=== PATIENT | male | born 1980 | race Two or more races ===

== ENCOUNTER 2018-01-28 12:27 | Inpatient (IN) | payer OTHER ==
[~2018-01-28] VITALS: Ht 172.7 cm; Wt 91.2 kg
[2018-01-28 14:00] VITALS: BP 126/78
--- NOTE | 2018-01-28 14:00 | NUR ---
ADMITTING NOTES PT DIRECT ADMIT FROM [facility] FOR STUDY. DX SCHIZOPHRENIA. PT A/OX4 AMBULATORY, NO SKIN ISSUES. PT ADM. TO MED.SURG. , VS ARE STABLE, O2 SATURATION 100%ON ROOM AIR. BELONGINGS LIST SIGHED AND PLACED IN CHART. THERE IS SPECIAL INSTRUCTION FROM DR. ZHU IN THE CHART. WILL ENDORSE TO NEXT SHIFT.
[2018-01-28] MEDS ORDERED: ESCITALOPRAM OXALATE (10 MG) 10 MG TABLET PO SCH (14:02)
[2018-01-28] MEDS ORDERED: METOCLOPRAMIDE HCL 10 MG TABLET PO PRN (14:30)
[2018-01-28] MEDS ORDERED: MAG HYDROX/AL HYDROX/SIMETH 30 ML UDC PO PRN (14:30)
[2018-01-28] MEDS ORDERED: IBUPROFEN 200 MG TABLET PO PRN (14:30)
[2018-01-28] MEDS ORDERED: MAGNESIUM HYDROXIDE 30 ML UDC PO PRN (14:30)
[2018-01-28 16:00] VITALS: BP 121/74
--- NOTE | 2018-01-28 19:03 | NUR ---
PT RESTING COMFORTABLE IN ROOM, NO CHANGES NOTED SINCE ADMISSION. SAFETY PRECAUTIONS IN PLACE, CALL LIGHT WITHIN REACH.WILL ENDORSE TO NEXT SHIFT FOR MARYJANE.
--- NOTE | 2018-01-28 19:30 | NUR ---
RN MS OPENING NOTES RECEIVED PATIENT IN BED AWAKE, ALERT AND ORIENTED X4, VERBALLY RESPONSIVE, ABLE TO MAKE NEEDS KNOWN. BREATHING EVEN AND UNLABORED. NO SOB NOTED. TOLERATING ROOM AIR. NO COMPLAINTS OF PAIN OR DISCOMFORT. NO IV ACCESS PER MD. SKIN DRY AND WARM TO TOUCH. AFEBRILE. ALL OTHER NEEDS ATTENDED TO. SAFETY MEASURES IN PLACE. CALL LIGHT WITHIN REACH. WILL CONTINUE TO MONITOR.
[2018-01-28 20:42] VITALS: BP 108/63
--- NOTE | 2018-01-29 06:37 | NUR ---
RN MS CLOSING NOTES PATIENT IN BED AWAKE. NO ACUTE CHANGES THROUGHOUT SHIFT. BREATHING EVEN AND UNLABORED. NO SOB NOTED. TOLERATING ROOM AIR. NO COMPLAINTS OF PAIN OR DISCOMFORT. NO IV ACCESS PER MD. SKIN DRY AND WARM TO TOUCH. AFEBRILE. ALL OTHER NEEDS ATTENDED TO. SAFETY MEASURES IN PLACE. CALL LIGHT WITHIN REACH. WILL ENDORSE TO ONCOMING NURSE FOR CONTINUITY OF CARE.
--- NOTE | 2018-01-29 07:10 | NUR ---
MS RN OPENING NOTES PATIENT IN BED AWAKE. NO ACUTE CHANGES THROUGHOUT SHIFT. BREATHING EVEN AND UNLABORED. NO SOB NOTED. TOLERATING ROOM AIR. NO COMPLAINTS OF PAIN OR DISCOMFORT. NO IV ACCESS PER MD. SAFETY MEASURES IN PLACE. CALL LIGHT WITHIN REACH.WILL CONTINUE TO MONITOR
[2018-01-29 08:00] VITALS: BP 122/83
[2018-01-29] MEDS: LEXAPRO 20 MG PO SCH (08:22)
[2018-01-29] MEDS: LORAZEPAM 1 MG TABLET FOR AGITATION PO PRN (15:26)
--- NOTE | 2018-01-29 15:35 | NUR ---
PRN ATIVAN 1MG IS GIVEN PER PATIENT REQUEST. PT STATES HE HAS RAISING THOUGHTS TO LEAVE THE HOSPITAL. PT COOPERATIVE AND APPEAR CALM. WILL CONTINUE TO MONITOR
[2018-01-29 16:00] VITALS: BP 108/68
--- NOTE | 2018-01-29 18:39 | NUR ---
MS RN CLOSING NOTES PATIENT RESTING IN BED. NO ACUTE CHANGES THROUGHOUT SHIFT. BREATHING EVEN AND UNLABORED. NO SOB NOTED. TOLERATING ROOM AIR. NO COMPLAINTS OF PAIN OR DISCOMFORT. NO IV ACCESS PER MD. SAFETY MEASURES IN PLACE. CALL LIGHT WITHIN REACH.WILL ENDORSE TO NEXT SHIFT.
--- NOTE | 2018-01-29 19:10 | NUR ---
RN OPENING NOTES RECEIVED PT RESTING IN BED, NO SOB, BREATHING EVEN AND UNLABORED AND IN NO ACUTE DISTRESS AT THIS TIME. ALL PATIENT'S NEEDS ATTENDED TO, DENIES PAIN, NAUSEA. PLACED CALL LIGHT WITHIN EASY REACH. WILL CONTINUE TO MONITOR.
[2018-01-29 20:00] VITALS: BP 102/54
[2018-01-29] MEDS: ZOLPIDEM TARTRATE 10 MG TABLET PO PRN (21:06)
--- NOTE | 2018-01-30 06:30 | NUR ---
RN CLOSING NOTES PATIENT SITTING UP IN BED, ALERT AND ORIENTED X 4, NO ACUTE DISTRESS THROUGHOUT THE SHIFT. ALL PATIENT'S NEEDS ATTENDED TO, NOTED WITH NO NAUSEA/VOMITING OR DIARRHEA. PLACED CALL LIGHT WITHIN EASY REACH. WILL ENDORSE TO AM SHIFT NURSE FOR CONTINUITY OF CARE.
--- NOTE | 2018-01-30 06:35 | NUR ---
RN NOTE PATIENT WENT DOWNSTAIRS FOR A SMOKE ACCOMPANIED BY ACCOUNT RECEIVABLE CLERK. WILL CONTINUE TO MONITOR.
--- NOTE | 2018-01-30 06:43 | NUR ---
RN NOTE PATIENT BACK IN THE UNIT, IN NO ACUTE DISTRESS AND IN STABLE CONDITION.
--- NOTE | 2018-01-30 07:30 | NUR ---
MS RN OPENING NOTE RECEIVED PT IN BED, ALERT AND ORIENTED X4. DENIES N/V, CHEST PAIN, SOB. BREATHING IS EVEN AND UNLABORED ON ROOM AIR. PT HAS NO IV ACCESS PER MD. ALL NEEDS ATTENDED TO. BED IS LOCKED AND IN LOWEST POSITION, SIDE RAILS UP X2, CALL LIGHT WITHIN REACH.
[2018-01-30 08:00] VITALS: BP 110/73
[2018-01-30] MEDS: LEXAPRO 20 MG PO SCH (08:56)
--- NOTE | 2018-01-30 13:20 | NUR ---
RN PT OFF UNIT PT OFF UNIT FOR EYE APPOINTMENT.
--- NOTE | 2018-01-30 15:45 | NUR ---
MS RN PT BACK PT BACK FROM EYE APPOINTMENT IN STABLE CONDITION. ALL NEEDS ATTENDED TO.
[2018-01-30 16:00] VITALS: BP 109/69
--- NOTE | 2018-01-30 19:02 | NUR ---
MS RN CLOSING NOTE PT IN BED, ALERT AND ORIENTED X4. DENIES N/V, CHEST PAIN, SOB. BREATHING IS EVEN AND UNLABORED ON ROOM AIR. PT HAS NO IV ACCESS PER MD. ALL NEEDS ATTENDED TO. BED IS LOCKED AND IN LOWEST POSITION, SIDE RAILS UP X2, CALL LIGHT WITHIN REACH. WILL ENDORSE TO CHART CALCULATOR RN FOR CONTINUITY OF CARE.
[2018-01-30 20:00] VITALS: BP 118/74
[2018-01-30] MEDS: ZOLPIDEM TARTRATE 10 MG TABLET PO PRN (21:32)
[2018-01-31 04:00] VITALS: BP 120/80
--- NOTE | 2018-01-31 06:16 | NUR ---
MS RN NOTES AWAKE & RESPONSIVE. NOT IN ANY DISTRESS. NO SOB NOTED. DENIES ANY PAIN OR DISCOMFORT AT THIS TIME. PT SLEPT FOR 8 HRS. CALL LIGHT WITHIN REACH. BED IN LOWEST POSITION. SR UP X2 FOR SAFETY. WILL ENDORSE TO NEXT SHIFT.
--- NOTE | 2018-01-31 07:44 | NUR ---
MS RN OPENING NOTES RECEIVED PT IS AWAKE, STANDING UP IN ROOM, LOOKING OUT THE WINDOW. PT IS A/O X4, PLEASANT. RESPIRATIONS ARE EVEN AND UNLABORED, NOT IN ANY ACUTE DISTRESS NOTED. PT DENIES ANY PAIN AT THIS TIME, NO SOB OR N/V NOTED. NO IV ACCESS NOTED. INSTRUCTED PT TO USE CALL LIGHT WHEN ASSISTANCE IS NEEDED, CALL LIGHT IS LEFT WITHIN REACH. WILL CONTINUE TO MONITOR THROUGHOUT SHIFT FOR CONTINUITY OF CARE.
[2018-01-31 08:00] VITALS: BP 119/68
[2018-01-31] MEDS: LEXAPRO 20 MG PO SCH (08:14)
--- NOTE | 2018-01-31 08:19 | NUR ---
MS RN NOTES-- PT WENT DOWN FOR A SMOKE BREAK WITH SPLICER HELPER IN STABLE CONDITION. PT IS AMBULATORY, STEADY GAIT.
--- NOTE | 2018-01-31 08:40 | NUR ---
MS RN NOTES-- PT CAME BACK IN STABLE CONDITION FROM SMOKE BREAK.
[2018-01-31 16:00] VITALS: BP 117/75
--- NOTE | 2018-01-31 18:32 | NUR ---
MS RN CLOSING NOTES ALL DUE MEDS GIVEN, NEEDS MET AND RENDERED. PT IS A/O X4, AFEBRILE. RESPIRATIONS ARE EVEN AND UNLABORED, NOT IN ANY ACUTE DISTRESS NOTED. PT DENIES ANY PAIN AT THIS TIME, NO C/O SOB, N/V NOTED. NO IV ACCESS. SAFETY MEASURES ARE IN PLACE. REMINDED PT TO USE CALL LIGHT WHEN ASSISTANCE IS NEEDED, CALL LIGHT IS LEFT WITHIN REACH. WILL ENDORSE TO NEXT SHIFT FOR CONTINUITY OF CARE.
--- NOTE | 2018-01-31 19:20 | NUR ---
MS RN OPENING NOTE RECEIVED PT IN BED, RESTING, ALERT AND ORIENTED X4. DENIES N/V, CHEST PAIN, NO SOB. BREATHING IS EVEN AND UNLABORED, ON ROOM AIR. AMBULATORY/STEADY. PT HAS NO IV ACCESS PER MD. ALL NEEDS ATTENDED TO. BED IS LOCKED AND IN LOWEST POSITION, SIDE RAILS UP X 2, CALL LIGHT WITHIN REACH. WILL MONITOR CLOSELY.
[2018-01-31 20:00] VITALS: BP 107/62
[2018-01-31 20:58] VITALS: BP 107/62
[2018-01-31] MEDS: ZOLPIDEM TARTRATE 10 MG TABLET PO PRN (22:03)
--- NOTE | 2018-01-31 22:04 | NUR ---
PRN AMBIEN GIVEN PATIENT REQUESTED TO TAKE AMBIEN AT THIS TIME DUE TO SLEEPLESSNESS. PRN AMBIEN GIVEN ORDERED. WILL MONITOR CLOSELY.
[2018-02-01] MEDS: LORAZEPAM 1 MG TABLET FOR AGITATION PO PRN (04:56)
--- NOTE | 2018-02-01 04:56 | NUR ---
PRN ATIVAN GIVEN PATIENT VERBALIZED OF FEELING RESTLESS & AGITATED ASKED TO TAKE ATIVAN, PRN ATIVAN 1MG GIVEN ORDERED. WILL REASSESS FOR EFFECTIVENESS.
--- NOTE | 2018-02-01 06:31 | NUR ---
MS RN CLOSING NOTE PT IN BED, ALERT AND ORIENTED X4. DENIES N/V, CHEST PAIN, SOB. BREATHING IS EVEN AND UNLABORED. ON ROOM AIR. PT HAS NO IV ACCESS PER MD. ALL NEEDS ATTENDED TO. ATIVAN WAS GIVEN & EFFECTIVE, PT IS CALM & RELAXED AT THIS TIME. BED IS LOCKED AND IN LOWEST POSITION, SIDE RAILS UP X2, CALL LIGHT WITHIN REACH. WILL ENDORSE TO AM SHIFT RN FOR CONTINUITY OF CARE.
--- NOTE | 2018-02-01 07:53 | NUR ---
MS RN OPENING NOTES RECEIVED PT NIGHTSHIFT RN IN STABLE CONDITION. PT IS A/O X3. NO SOB OR ACUTE SIGNS OF DISTRESS NOTED. BREATHING IS EVEN AND UNLABORED. HE DENIES ANY PAIN AT THIS TIME. NO IV ACCESS NOTED. NO REPORTS OF BEHAVIORAL DISRUPTIONS REPORTED BY NIGHTSHIFT RN. PT ABLE TO SLEEP WELL THROUGHOUT THE NIGHT AND COMPLIANT WITH CURRENT MANAGEMENT. PT PERSISTS ON HAVING THE BED IN AN ELEVATED POSITION. SAFETY PRECAUTIONS EXPLAINED TO THE PT, HOWEVER HE REMAINS ADAMANT THAT THE BED STAY IN THAT POSITION STATING "I LIKE TO LOOK THROUGH THE WINDOW FROM THIS POSITION". SIDE RAILS UP X2, CALL LIGHT WITHIN REACH. WILL CONTINUE TO MONITOR
[2018-02-01 08:00] VITALS: BP 115/69
[2018-02-01] MEDS: LEXAPRO 20 MG PO SCH (08:49)
[2018-02-01] MEDS: REGLAN 10 MG PO PRN (10:02)
[2018-02-01 16:00] VITALS: BP 115/68
--- NOTE | 2018-02-01 18:29 | NUR ---
MS RN CLOSING NOTES PT REMAINS STABLE. ALL NEEDS WERE MET DURING SHIFT AND ORDERS CARRIED OUT ACCORDINGLY. ALL DUE MEDS GIVEN. PT COMPLIANT WITH TREATMENT AND MEDICATION ADMINISTRATION. NO BEHAVIORAL PROBLEMS NOTED THROUGHOUT SHIFT. SAFETY MEASURES REMAIN IN PLACE. WILL ENDORSE TO NIGHTSHIFT RN FOR MARYJANE
--- NOTE | 2018-02-01 19:10 | NUR ---
RN MS OPENING NOTES RECEIVED PATIENT IN BED AWAKE ALERT AND ORIENTED X3-4 ABLE TO MAKE NEEDS KNOWN, RESPIRATIONS EVEN AND UNLABORED WITH EQUAL RISE AND FALL OF CHEST, DENIES ANY PAIN OR DISCOMFORT AT THIS TIME, ORIENTED TO STAFF AND CALL LIGHT AND KEPT WITHIN REACH, NOTED PATIENT PLACED BED IN HIGH POSITION , MADE PATIENT AWARE NOT SAFE TO HAVE BED THIS HIGH AND WILL BRING LOWER TO GROUND, BED WAS BROUGHT DOWN TO SAFETY, PER PATIENT STATES " I LIKE IT HIGH." WILL CONTINUE TO MONITOR FOR SAFETY PRECAUTIONS, ALL NEEDS ATTENDED AT THIS TIME, WILL CONTINUE TO MONITOR AND ADDRESS NEEDS.
[2018-02-01 20:00] VITALS: BP 105/65
[2018-02-01] MEDS: ZOLPIDEM TARTRATE 10 MG TABLET PO PRN (21:18)
--- NOTE | 2018-02-01 21:18 | NUR ---
RN MS NOTES PATIENT REQUESTING FOR SANDY DELGADO PRN GIVEN ORDERED WILL CONTINUE TO MONITOR FOR EFFECTIVENESS. PATIENT PLACED BED TO HIGH POSITION, REFUSES TO HAVE BED IN LOW PLACEMENT FOR SAFETY. PATIENT ALSO REQUEST TO HAVE HEATER ON HIGH.REFUSES TO BEING TEMPERATURE OF ROOM DOWN.STATES " I GET COLD."
[2018-02-02] MEDS: LORAZEPAM 1 MG TABLET FOR AGITATION PO PRN ×2 (04:42→20:31)
--- NOTE | 2018-02-02 04:42 | NUR ---
RN MS NOTES PATIENT FEELING ANXIOUS AWAKE REQUESTING FOR ATIVAN PRN ATIVAN GIVEN ORDERED WILL CONTINUE TO MONITOR FOR EFFECTIVENESS
--- NOTE | 2018-02-02 06:49 | NUR ---
RN MS CLOSING NOTES PATIENT IN BED SLEEPING BUT EASILY AROUSABLE ALERT AND ORIENTED X3-4 ABLE TO MAKE NEEDS KNOWN, RESPIRATIONS EVEN AND UNLABORED WITH EQUAL RISE AND FALL OF CHEST, DENIES ANY PAIN OR DISCOMFORT AT THIS TIME, CALL LIGHT KEPT WITHIN REACH, REMAINS COMFORTABLE AT THIS TIME NO IV ACCESS MD AWARE, PATIENT SLEPT WELL THROUGHOUT SHIFT, WILL CONTINUE TO MONITOR FOR SAFETY PRECAUTIONS, ALL NEEDS ATTENDED AT THIS TIME, WILL CONTINUE TO MONITOR AND ENDORSE TO NEXT SHIFT. NO SI/HI.
--- NOTE | 2018-02-02 07:28 | NUR ---
MS RN NOTES PATIENT RECEIVED RESTING INSIDE ROOM. AWAKE, ALERT AND ORIENTED, VERBALLY RESPONSIVE AND RESPONDS TO VERBAL AND TACTILE STIMULI. BREATHING EVEN AND UNLABORED. DENIES ANY PAIN OR DISCOMFORT. NO CHANGES IN LOC NOTED. WILL CONTINUE TO MONITOR. BED LOCKED AND IN LOW POSITION. BILATERAL UPPER SIDE RAILS UP AND LOCKED. CALL LIGHT WITHIN EASY REACH
[2018-02-02 08:00] VITALS: BP 109/60
[2018-02-02] MEDS: LEXAPRO 20 MG PO SCH (08:16)
[2018-02-02 16:00] VITALS: BP 102/75
--- NOTE | 2018-02-02 18:38 | NUR ---
MS RN NOTES PATIENT RESTING INSIDE ROOM. AWAKE, ALERT AND ORIENTED, VERBALLY RESPONSIVE AND RESPONDS TO VERBAL AND TACTILE STIMULI. BREATHING EVEN AND UNLABORED. NO SOB OR ACUTE DISTRESS. DENIES ANY PAIN OR DISCOMFORT. NO CHANGES IN LOC NOTED. ALL NURSING NEEDS ATTENDED AND MET. PATIENT KEPT CLEAN, DRY AND COMFORTABLE. WILL ENDORSE TO INCOMING SHIFT FOR MARYJANE. PATIENT KEPT CLEAN, DRY AND COMFORTABLE. BED LOCKED AND IN LOW POSITION. BILATERAL UPPER SIDE RAILS UP AND LOCKED. CALL LIGHT WITHIN EASY REACH
--- NOTE | 2018-02-02 19:10 | NUR ---
RN OPENING NOTES RECEIVED PT RESTING INSIDE ROOM. AWAKE, ALERT AND ORIENTED, VERBALLY RESPONSIVE AND RESPONDS TO VERBAL AND TACTILE STIMULI. BREATHING EVEN AND UNLABORED. NO SOB AND IN NO DISTRESS. DENIES ANY PAIN OR DISCOMFORT AT THIS TIME. NO CHANGES IN LOC NOTED. ALL PATIENT'S NEEDS ATTENDED TO AT THIS TIME. PATIENT KEPT CLEAN, DRY AND COMFORTABLE. CALL LIGHT WITHIN EASY REACH. WILL CONTINUE TO MONITOR.
[2018-02-02 20:00] VITALS: BP 101/62
--- NOTE | 2018-02-02 20:34 | NUR ---
RN NOTES NOTED PT TO BE RESTLESS, ATIVAN GIVEN ORDERED. WILL CONTINUE TO MONITOR.
[2018-02-03] MEDS: ZOLPIDEM TARTRATE 10 MG TABLET PO PRN ×2 (00:16→23:18)
--- NOTE | 2018-02-03 07:01 | NUR ---
RN CLOSING NOTES PATIENT IN BED, AWAKE, ALERT AND VERBALLY RESPONSIVE. PT SLEPT INTERMITTENTLY THROUGHOUT THE SHIFT. NO ACUTE DISTRESS NOTED, NO SOB, NO C/O PAIN. ALL PATIENT'S NEEDS ATTENDED TO. CALL LIGHT WITHIN EASY REACH. WILL ENDORSE TO AM SHIFT NURSE FOR CONTINUITY OF CARE.
--- NOTE | 2018-02-03 07:10 | NUR ---
MS RN OPENING NOTE RECEIVED PATIENT IN BED. ALERT ORIENTED X4. ON ROOM AIR., TOLERATING WELL. IN NO APPARENT DISTRESS OR DISCOMFORT AT THIS TIME. RESPIRATIONS EVEN AND UNLABORED. DENIES PAIN AND SOB. PATIENT IS ABLE TO COMMUNICATE NEEDS. PATIENT IS INDEPENDENT WITH BATHROOM USE. NO IV ACCESS AVAILABLE, MD AWARE. SAFETY MEASURES IN PLACE, BED IN LOW LOCKED POSITION, SIDE AILS UP X2, CALL LIGHT WITHIN EASY REACH, WILL CONTINUE TO MONITOR.
[2018-02-03 08:00] VITALS: BP 104/65
[2018-02-03 08:05] VITALS: BP 104/65
[2018-02-03 16:02] VITALS: BP 119/74
--- NOTE | 2018-02-03 18:18 | NUR ---
MS RN CLOSING NOTE PATIENT LAYING IN BED. ALERT ORIENTED X4. ON ROOM AIR, TOLERATING WELL. IN NO APPARENT DISTRESS OR DISCOMFORT AT THIS TIME. RESPIRATIONS EVEN AND UNLABORED. DENIES PAIN AND SOB. PATIENT IS ABLE TO COMMUNICATE NEEDS. PATIENT IS INDEPENDENT WITH BATHROOM USE. NO IV ACCESS AVAILABLE, MD AWARE. ALL NEEDS ATTENDED, MADE COMFORTABLE. NO ACUTE EVENTS OBSERVED. SAFETY MEASURES IN PLACE, BED IN LOW LOCKED POSITION, SIDE AILS UP X2, CALL LIGHT WITHIN EASY REACH, WILL ENDORSE TO NIGHT RN FOR MARYJANE.
--- NOTE | 2018-02-03 19:20 | NUR ---
RN OPENING NOTES RECEIVED PT IN BED, ASLEEP BUT EASILY AROUSABLE. PT WITH NO SOB, BREATHING EVEN AND UNLABORED AND DENIES PAIN AT THIS TIME. ALL PATIENT'S NEEDS ATTENDED TO. PLACED CALL LIGHT WITHIN EASY REACH. WILL CONTINUE TO MONITOR.
[2018-02-03 20:00] VITALS: BP 115/69
[2018-02-04] MEDS: ACETAMINOPHEN ES 500 MG TABLET PO PRN (04:24)
--- NOTE | 2018-02-04 06:29 | NUR ---
RN CLOSING NOTES PATIENT SLEPT WELL THROUGHOUT THE SHIFT. NOTED WITH NO S/S OF DISTRESS, NO SOB, BREATHING EVEN AND UNLABORED AND IN STABLE CONDITION. ALL PATIENT'S NEEDS ATTENDED TO, LOCKED BED IN LOW POSITION, PLACED CALL LIGHT WITHIN EASY REACH. WILL ENDORSE TO AM SHIFT NURSE FOR CONTINUITY OF CARE.
--- NOTE | 2018-02-04 07:18 | NUR ---
MS RN OPENING NOTES RECEIVED PATIENT IN STABLE CONDITION. IN NO APPARENT DISTRESS. BEDSIDE RAILS ARE UPX2. CALL LIGHT IS WITHIN REACH. WILL CONTINUE TO MONITOR PATIENT.
[2018-02-04 08:00] VITALS: BP 101/72
[2018-02-04 16:00] VITALS: BP 113/67
--- NOTE | 2018-02-04 18:25 | NUR ---
MS BONNER CLOSING NOTES PATIENT IS IN STABLE CONDITION. IN NO APPARENT DISTRESS. BEDSIDE RAILS ARE UPX2. BED IS LOCKED AND LOWERED. CALL LIGHT IS WITHIN REACH. IV LINE IS INTACT AND PATENT. ALL NEEDS WERE MET. WILL ENDORSE CARE TO LAUNCH OPERATOR NURSE FOR MARYJANE. Addendum: 02/04/18 at 1827 by BEN SERNA RN PATIENT HAS NO IV. IS AWARE.
--- NOTE | 2018-02-04 19:37 | NUR ---
RN MS OPENING NOTES RECEIVED PT SITTING UP IN BED, AWAKE, ALERT ORIENTED X4, BREATHING EVEN AND UNLABORED ON RA. NO SOB NO COUGH OR CONGESTION. NO COMPLAINT OF PAIN OR DISCOMFORT AT THE MOMENT. NO IV ACCESS, PT TO START CLINICAL TRIAL DRUG TOMORROW. BED IN LOWEST LOCKED POSITION, CALL LIGHT WITHIN REACH AT ALL TIMES, WILL CONTINUE TO MONITOR.
[2018-02-04 20:00] VITALS: BP 106/63
[2018-02-04] MEDS: ZOLPIDEM TARTRATE 10 MG TABLET PO PRN (20:08)
--- NOTE | 2018-02-05 06:41 | NUR ---
PT REMAINS IN BED, AWAKE, ALERT ORIENTED X4. BREATHING EVEN AND UNLABORED ON ROOM AIR. NO COMPLAINT OF PAIN OR DISCOMFORT AT THIS TIME. NO SUNNY ACCESS. ALL NEEDS ATTENDED TO. BED IN LOWEST LOCKED POSITION, CALL LIGHT WITHIN REACH AT ALL TIMES, WILL ENDORSE TO DAY NURSE FOR MARYJANE.
--- NOTE | 2018-02-05 07:37 | NUR ---
MS RN OPENING NOTES RECEIVED PATIENT IN STABLE CONDITION. IN NO APPARENT DISTRESS. BEDSIDE RAILS ARE UPX2. BED IS LOCKED AND LOWERED. CALL LIGHT IS WITHIN REACH. WILL CONTINUE TO MONITOR PATIENT.
[2018-02-05 08:00] VITALS: BP 107/67
[2018-02-05 16:00] VITALS: BP 112/64
[2018-02-05] MEDS: INVESTIGATIONAL MED RGH-MD-24 1 CAP PO SCH (16:30)
--- NOTE | 2018-02-05 18:10 | NUR ---
MS RN CLOSING NOTES PATIENT IS STABLE CONDITION. IN NO APPARENT DISTRESS. BEDSIDE RAILS ARE UPX2. BED IS LOCKED AND LOWERED. CALL LIGHT IS WITHIN REACH. WILL ENDORSE CARE TO TRIM DIE MAKER NURSE FOR MARYJANE.
[2018-02-05] MEDS: ACETAMINOPHEN ES 500 MG TABLET PO PRN (18:17)
--- NOTE | 2018-02-05 19:30 | NUR ---
PT IN BED AWAKE AND ALERT. NO DISTRESS, NO BEHAVIORAL ISSUE NOTED. ISOLATED AND RATHER QUIET. WILL CONT TO MONITOR ,
[2018-02-05 20:00] VITALS: BP 108/78
[2018-02-05] MEDS: ZOLPIDEM TARTRATE 10 MG TABLET PO PRN (20:56)
--- NOTE | 2018-02-05 20:56 | NUR ---
AMBIEN F=GIVEN ORDERED PER PT'S REQUEST FOR C/O INSOMNIA. WILL CONT TO MONITOR ,
--- NOTE | 2018-02-06 06:53 | NUR ---
PT IN BED RESTING COMFORTABLY. NO BEHAVIORAL PROBLEM NOTED DURING THE NIGHT, NO A/R TO INVESTIGATION MEDICATION NOTED. NO S/I. NEEDS ATTENDED. CALL LIGHT WITHIN REACH, WILL CONT TO MONITOR AND WILL ENDORSE TO AM SHIFT FOR MARYJANE.
--- NOTE | 2018-02-06 07:15 | NUR ---
RN OPENING NOTE RECEIVED PATIENT AWAKE IN BED AT THIS TIME. ALERT AND ORIENTED x4 NO FACIAL GRIMACING NOTED FOR PAIN. NO SOB OR DISTRESS NOTED ON ROOM AIR TOLERATING WELL. CALL LIGHT WITHIN AND SAFETY MEASURES IMPLEMENTED. ABLE TO COMMUNICATE NEEDS. NO IV ACCESS PER MD. CLINICAL TRIAL. WILL CONTINUE CONTINUITY OF CARE
[2018-02-06 08:00] VITALS: BP 109/69
--- NOTE | 2018-02-06 09:07 | NUR ---
RN NOTE PATIENT WENT DOWN FOR SMOKE BREAK WITH CAMP PROGRAM DIRECTOR.
--- NOTE | 2018-02-06 09:20 | NUR ---
RN NOTE PATIENT BACK FROM SMOKE BREAK WITH RENAY
[2018-02-06] MEDS: LORAZEPAM 1 MG TABLET FOR AGITATION PO PRN (10:04)
--- NOTE | 2018-02-06 10:04 | NUR ---
MS/RN NOTE THE PATIENT VERBALIZES BEING RESTLESS. REDIRECTION, RELAXATION IS ENCOURAGED TO REDUCE FEELING RESTLESS HOWEVER, THESE NON-PHARMACOLOGICAL INTERVENTIONS WERE NOT EFFECTIVE OF PRN PO ATIVAN GIVEN ORDERED. WILL CONTINUE TO MONITOR.
--- NOTE | 2018-02-06 11:39 | NUR ---
RN NOTE PATIETN REQUESTING FOR SMOKE BREAK. WENT DOWN WITH RENAY
--- NOTE | 2018-02-06 11:50 | NUR ---
MS RN NOTE PATIENT BACK FROM SMOKE BREAK WITH BRIM GREASER OPERATOR. PATIENT LAYING IN BED
[2018-02-06 16:00] VITALS: BP 108/72
[2018-02-06] MEDS: INVESTIGATIONAL MED RGH-MD-24 1 CAP PO SCH (16:42)
--- NOTE | 2018-02-06 19:10 | NUR ---
RN NOTES RECEIVED PT AWAKE, OUT OF BED SITTING IN THE CHAIR, ON ROOM AIR AND TOLERATED WELL. DENIES PAIN AND ANY DISCOMFORT. CALM AND COOPERATIVE. NO IV ACCESS. AMBULATORY WITH STEADY GAIT. SAFETY MEASURES IN PLACE. WILL CONTINUE TO MONITOR PT.
[2018-02-06 20:28] VITALS: BP 117/71
[2018-02-06] MEDS ORDERED: ZOLPIDEM TARTRATE 10 MG TABLET ONE (21:46)
[2018-02-06] MEDS: ZOLPIDEM TARTRATE 10 MG TABLET PO PRN (21:48)
--- NOTE | 2018-02-06 21:48 | NUR ---
RN NOTES PATIENT VERBALIZED DIFFICULTY TO SLEEP, AMBIEN 10 MG TAB GIVEN PO. WILL CONTINUE TO MONITOR PATIENT.
[2018-02-06 22:00] VITALS: BP 117/71
--- NOTE | 2018-02-07 06:11 | NUR ---
RN NOTES PATIENT SLEPT WELL OVERNIGHT. DENIES DELUSIONS AND HALLUCINATIONS. PATIENT CALM AND QUIET. NO SIGNIFICANT CHANGE IN BEHAVIOR NOTED. WILL CONTINUE TO MONITOR.
--- NOTE | 2018-02-07 07:55 | NUR ---
RN OPENING NOTES RECEIVED PATIENT AWAKE IN BED RESTING COMFORTABLY, ALERT AND ORIENTED x4 NO FACIAL GRIMACING NO SIGNS OF PAIN NOTED. NO SOB OR DISTRESS NOTED ON ROOM AIR TOLERATING WELL. CALL LIGHT WITHIN AND SAFETY MEASURES IMPLEMENTED. ABLE TO COMMUNICATE NEEDS. NO IV ACCESS PER MD. CLINICAL TRIAL. WILL MONITOR ACCORDINGLY.
[2018-02-07 08:00] VITALS: BP 114/70
[2018-02-07] MEDS: LORAZEPAM 1 MG TABLET FOR AGITATION PO PRN (12:00)
[2018-02-07 16:00] VITALS: BP 114/70
[2018-02-07] MEDS: INVESTIGATIONAL MED RGH-MD-24 1 CAP PO SCH (17:27)
--- NOTE | 2018-02-07 18:39 | NUR ---
RN CLOSING NOTES PATIENT IS RESTING COMFORTABLY AT THIS TIME. ABLE TO CONSUMED FOOD TRAY SERVED. ALL NEEDS ATTENDED. ALL SAFETY MEASURES OBSERVED. NO COMPLAINTS OF PAIN OR DISCOMFORT. WILL ENDORSE TO PM NURSE ASSIGNED FOR CONTINUITY OF CARE.
--- NOTE | 2018-02-07 19:15 | NUR ---
MS/RN NOTES RECEIVED PT. SITTING IN CHAIR. PT. IS AWAKE, ALERT AND ORIENTED X3. BREATHING EVEN AND UNLABORED ON ROOM AIR. NO SOB, RESPIRATORY DISTRESS OR COMPLAINTS OF PAIN NOTED AT THIS TIME. PT. REMAINS WITH NO IV ACCESS. PT. IS AMBULATORY WITH STEADY GAIT. WILL CONTINUE TO MONITOR.
[2018-02-07 20:19] VITALS: BP 138/88
[2018-02-07] MEDS ORDERED: ZOLPIDEM TARTRATE 10 MG TABLET ONE (21:46)
[2018-02-07] MEDS: ZOLPIDEM TARTRATE 10 MG TABLET PO PRN (21:48)
--- NOTE | 2018-02-08 06:45 | NUR ---
MS/RN NOTES PT. IS SITTING IN BED. PT. IS AWAKE, ALERT AND ORIENTED X3. BREATHING EVEN AND UNLABORED ON ROOM AIR. NO SOB, RESPIRATORY DISTRESS OR COMPLAINTS OF PAIN NOTED AT THIS TIME. PT. DENIES ANY HALLUCINATIONS. PT. REMAINS WITH NO IV ACCESS. ALL PT. NEEDS MET. BED LOCKED AND IN LOWEST POSITION, SIDE RAILS UP X2, CALL LIGHT WITHIN REACH, WILL ENDORSE TO DAYSHIFT NURSE FOR CONTINUITY OF CARE.
--- NOTE | 2018-02-08 07:30 | NUR ---
RN OPENING NOTES RECEIVED PT. SITTING UP IN BED A&OX4. BREATHING UNLABORED ON ROOM AIR. NO S/S OF ACUTE DISTRESS. NO IV ACCESS AT THIS TIME. BED IS IN LOWEST, AND LOCKED POSITION. 2 SIDE RAILS UP, AND INSTRUCTED PT. TO USE CALL LIGHT FOR ASSISTANCE. ALL NEEDS MET. WILL CONTINUE TO ASSESS AND MONITOR.
[2018-02-08 08:00] VITALS: BP 114/74
[2018-02-08] MEDS: REGLAN 10 MG PO PRN (08:32)
[2018-02-08 16:00] VITALS: BP 101/66
[2018-02-08] MEDS: INVESTIGATIONAL MED RGH-MD-24 1 CAP PO SCH (17:01)
--- NOTE | 2018-02-08 18:45 | NUR ---
RN CLOSING NOTES PT. IS A&OX4. BREATHING UNLABORED ON ROOM AIR. NO S/S OF ACUTE DISTRESS. NO IV ACCESS. PT. IS IN A CLINICAL TRIAL STUDY. BED IS IN LOWEST, AND LOCKED POSITION. 2 SIDE RAILS UP, AND INSTRUCTED PT. TO USE CALL LIGHT FOR ASSISTANCE. ALL NEEDS MET. WILL ENDORSE REPORT TO NURSE.
--- NOTE | 2018-02-08 19:10 | NUR ---
MS/RN NOTES PT RECEIVED RESTING IN BED. A/OX3. ON ROOM AIR, BREATHING EVEN AND UNLABORED. DENIES SOB OR PAIN AT THIS TIME. NO IV ACCESS PER PROTOCOL. PT REFUSING TO PUT SIDE RAILS UP. EDUCATED ON SAFETY BUT STILL REFUSING. BED IN LOW/LOCKED POSITION. CALL LIGHT IN REACH. DENIES SI/HI, HALLUCINATIONS AT THIS TIME. WILL CONTINUE TO MONITOR
[2018-02-08 20:00] VITALS: BP 97/63
--- NOTE | 2018-02-08 21:00 | NUR ---
MS/RN NOTES PT WENT DOWN FOR SMOKE BREAK, ACCOMPANIED BY BUS INSPECTOR
--- NOTE | 2018-02-08 21:15 | NUR ---
MS/RN NOTES PT BACK TO UNIT.
[2018-02-08] MEDS: ZOLPIDEM TARTRATE 10 MG TABLET PO PRN (22:11)
--- NOTE | 2018-02-08 22:24 | NUR ---
MS/RN NOTES AMBIEN ADMINISTERED ORDERED. BELONGINGS LIST UPDATED AND REVIEWED WITH PT. PT REFUSING TO LET ME PHYSICALLY GO THROUGH HIS BELONGINGS. LIGHT AND CIGARETTES AT BEDSIDE. REFUSING TO LEAVE AT NURSES STATION. PT BECOMING AGITATED. STORE OPERATIONS MANAGER AWARE.
--- NOTE | 2018-02-08 22:56 | NUR ---
MS/RN NOTES REPORT GIVEN TO NURSE GRAHAM FOR CONTINUITY OF CARE
--- NOTE | 2018-02-08 23:00 | NUR ---
RN OPENING NOTES: PATIENT ASLEEP IN BED, ARAUSABLE TO VERBAL AND TACTILE STIMULI, NO SOB, NO ACUTE DISTRESS, BREATHING EVEN AND UNLABORED, NO S/S OF PAIN AND DISCOMFORT, WILL CONTINUE TO MONITOR
--- NOTE | 2018-02-09 07:26 | NUR ---
PATIENT STABLE, QUIET AND AWAKE, NO SOB, NO ACUTE DISTRESS, BREATHING EVEN AND UNLABORED, NO S/S OF PAIN AND DISCOMFORT, ENDORSED TO THE NEXT SHIFT
[2018-02-09 08:00] VITALS: BP 91/53
--- NOTE | 2018-02-09 08:00 | NUR ---
RN NOTES RECEIVED PATIENT IN THE BED A/O X4, PATIENT HAS NO ACUTE RESPIRATORY DISTRESS. ENCOURAGED TO EXPRESS FEELINGS AND CONCERNS. PATIENT REFUSED SI/HI AT THIS TIME. REFUSED HALLUCINATION. PATIENT SELF CARE, AMBULATORY. CALL LIGHT WITHIN TO REACH. SAFETY PRECAUTION MAINTAINED ALL THE TIME.
[2018-02-09] MEDS: LORAZEPAM 1 MG TABLET FOR AGITATION PO PRN (09:20)
[2018-02-09] MEDS: ACETAMINOPHEN ES 500 MG TABLET PO PRN (09:20)
--- NOTE | 2018-02-09 09:20 | NUR ---
RN NOTES ADMINISTERED TYLENOL 1000 ML PO PRN FOR HEADACHE, AND ATIVAN 1 MG PO PRN FOR ANXIETY PER PATIENT REQUEST, V/S TAKEN BP -100/53, P-74, CONTINUED MONITORING.
[2018-02-09 09:27] VITALS: BP 103/69
[2018-02-09 16:00] VITALS: BP 106/66
[2018-02-09] MEDS: INVESTIGATIONAL MED RGH-MD-24 1 CAP PO SCH (16:48)
--- NOTE | 2018-02-09 18:30 | NUR ---
RN NOTES PATIENT STABLE, COOPERATIVE, SCHEDULED MEDICATION ADMINISTERED. V/S STABLE. PATIENT SELF CARE. ENDORSED ONCOMING NURSE FOR PLAN OF CARE.
--- NOTE | 2018-02-09 19:20 | NUR ---
RECEIVED PT IN BED AWAKE AND ALERT. NO DISTRESS, NO BEHAVIORAL ISSUE NOTED. DENIED ANY DISCOMFORT,. NEEDS ATTENDED. CALL LIGHT WITHIN REACH. WILL CONT TO MONITOR ,
[2018-02-09 20:00] VITALS: BP 103/63
[2018-02-09] MEDS: ZOLPIDEM TARTRATE 10 MG TABLET PO PRN (21:04)
--- NOTE | 2018-02-09 21:04 | NUR ---
ZORAIDAIEN GIVEN ORDERED PER PT'S REQUEST FOR C/O INSOMNIA. WILL CONT TO MONITOR.
--- NOTE | 2018-02-10 06:53 | NUR ---
PT REMAINED CALM AND COMFORTABLE DURING THE NIGHT WITH GOOD NIGHT SLEEP. NO BEHAVIORAL PROBLEM,. NO EPISODE OF NON- COMPLIANCE. NO A/E TO INVESTIGATION MED, WILL CONT TO MONITOR AND WILL ENDORSE TO AM SHIFT FOR MARYJANE.
[2018-02-10 08:00] VITALS: BP 113/70
--- NOTE | 2018-02-10 08:00 | NUR ---
MS RN NOTES RECEIVED PATIENT ASLEEP IN BED WITH NO DISTRESS NOTED. CALL LIGHT WITHIN REACH. NO C/O PAIN OR DISCOMFORT. BED IN LOW LOCK SETTING. ALL BELONGINGS KEPT NEAR BEDSIDE. WILL CONTINUE TO MONITOR.
[2018-02-10 16:00] VITALS: BP 103/65
[2018-02-10] MEDS: INVESTIGATIONAL MED RGH-MD-24 1 CAP PO SCH (16:39)
--- NOTE | 2018-02-10 19:24 | NUR ---
MS RN CLOSING NOTES PATIENT REMAINS AWAKE IN BED IN STABLE CONDITION. ALL DUE MEDS GIVEN ORDERED AND TOLERATED WELL. NO C/O PAIN OR DISCOMFORT. ALL BELONGINGS KEPT NEAR BEDSIDE. CALL LIGHT WITHIN REACH. WILL ENDORSE TO ONCOMING SHIFT.
[2018-02-10 20:00] VITALS: BP 104/66
--- NOTE | 2018-02-10 20:00 | NUR ---
MS/RN RECEIVE PATIENT AWAKE, ALERT, ORIENTED, COMFORTABLE, NO C/O PAIN, NO DISTRESS NOTED, CALL LIGHT IN REACH. WILL MONITOR.
[2018-02-10] MEDS: ZOLPIDEM TARTRATE 10 MG TABLET PO PRN (22:26)
--- NOTE | 2018-02-11 00:23 | NUR ---
MS/RN PATIENT IS SLEEPING AT THIS TIME, APPEAR COMFORTABLE, NO DISTRESS NOTED, CALL LIGHT IN REACH. WILL CONTINUE TO MONITOR.
--- NOTE | 2018-02-11 07:25 | NUR ---
RN OPENING NOTES RECEIVED PATIENT AWAKE, WALKING AROUND THE ROOM. A/OX4, ABLE TO MAKE NEEDS KNOWN. NO ACUTE DISTRESS, NO SOB. DENIED PAIN OR [id number] AT THIS TIME. NO IV ACCESS. KEPT PATIENT SAFE AND COMFORTABLE. BED IN LOW/LOCKED POSITION, SIDERAILS UPX2, CALL LIGHT IN REACH. WILL CONTINUE TO MONIOTR ACCORDINGLY.
[2018-02-11 08:00] VITALS: BP 109/74
[2018-02-11] MEDS: LORAZEPAM 1 MG TABLET FOR AGITATION PO PRN (09:52)
[2018-02-11] MEDS: ACETAMINOPHEN ES 500 MG TABLET PO PRN (09:52)
[2018-02-11 16:00] VITALS: BP 119/71
[2018-02-11] MEDS: INVESTIGATIONAL MED RGH-MD-24 1 CAP PO SCH (17:44)
--- NOTE | 2018-02-11 19:20 | NUR ---
RN CLOSING NOTES PATIENT IN STABLE CONDITION. ALL NEEDS ATTENDED AND PROVIDED. ALL DUE MEDICATIONS GIVEN ORDERED. KEPT PATIENT SAFE AND COMFORTABLE. BED IN LOW/LOCKED POSITION, SIDERAILS UPX2, CALL LIGHT IN REACH. ENDORSED TO NIGHT RN FOR MARYJANE.
--- NOTE | 2018-02-11 19:39 | NUR ---
MS/RN RECEIVE PATIENT AWAKE, ALERT, ORIENTED, COMFORTABLE, NO C/O PAIN, NO DISTRESS NOTED, CALL LIGHT IN REACH. WILL MONITOR.
[2018-02-11 21:45] VITALS: BP 119/72
--- NOTE | 2018-02-11 23:24 | NUR ---
MS/RN PATIENT IS SLEEPING AT THIS TIME, APPEAR COMFORTABLE, NO DISTRESS NOTED, CALL LIGHT IN REACH. WILL CONTINUE TO MONITOR.
[2018-02-12] MEDS: ZOLPIDEM TARTRATE 10 MG TABLET PO PRN (01:54)
--- NOTE | 2018-02-12 01:56 | NUR ---
MS/RN PATIENT IS AWAKE, REQUESTED FOR SLEEPING PILL, PER PATIENT HE WILL NOT BE ABLE TO SLEEP IF HE WILL NOT TAKE SLEEPING PILL. AMBIEN PO WAS GIVEN ORDERED. WILL MONITOR.
--- NOTE | 2018-02-12 06:30 | NUR ---
MS/RN PATIENT WANTED TO GO HOME, PAPER WORKS PREPARED AND SIGNED, PER PATIENT HE DOES NOT HAVE ANYMORE MEDICATION IN THE PHARMACY. BELONGINGS RETURNED. VITAL SIGNS STABLEBP 120/60, HR 85, TEMP 98.1 O2 SAT 97%. PATIENT LEFT THE FLOOR AT 0630, ACCOMPANIED BY THE CAFETERIA WORKER TO THE LOBBY.
== END 2018-02-12 06:30 | disposition home or self-care (01) | DRG 951 ==
LOC: CLIGERO 13:31 → EDSTATUS 13:34 → MED 13:38
PROVIDERS: ADMIT Psychiatry & Neurology Psychiatry; ATTEND Psychiatry & Neurology Psychiatry
DX: Z00.6 Encounter for examination for normal comparison and control in clinical research program (principal); F20.0 Paranoid schizophrenia
CPT/HCPCS: 87081-TC; G0378